=== PATIENT | female | born 1985 | race Caucasian/White ===

== ENCOUNTER 2025-09-30 11:41 | Emergency (ER) | payer BC ==
[~2025-09-30] VITALS: Ht 162.6 cm; Wt 57.6 kg
[2025-09-30] MEDS ORDERED: CONC36TA4 PO (12:05)
[2025-09-30 12:47] LABS: AMPHETAMINES LEVEL URINE NEGATIVE (NEGATIVE); BARBITURATES URINE NEGATIVE (NEGATIVE); BENZODIAZEPINES URINE NEGATIVE (NEGATIVE); CANNABINOIDS URINE NEGATIVE (NEGATIVE); COCAINE METABOLITE URINE NEGATIVE (NEGATIVE); METHADONE URINE NEGATIVE (NEGATIVE); OPIATES URINE NEGATIVE (NEGATIVE); PHENCYCLIDINE URINE NEGATIVE (NEGATIVE)
[2025-09-30 13:17] VITALS: BP 98/55; TEMP 98.7; O2SAT 100
== END 2025-09-30 13:35 | disposition home or self-care (01) ==
LOC: EDBD 11:41 → M ED 11:41
DX: S09.90XA Unspecified injury of head, initial encounter (principal); V86.52XA Driver of snowmobile injured in nontraffic accident, initial encounter; Z88.5 Allergy status to narcotic agent; Z79.899 Other long term (current) drug therapy; Y92.481 Parking lot as the place of occurrence of the external cause; Y93.23 Activity, snow (alpine) (downhill) skiing, snowboarding, sledding, tobogganing and snow tubing; Y99.9 Unspecified external cause status